=== PATIENT | female | born 1990 | race Caucasian/White ===

== ENCOUNTER 2017-03-05 10:55 | Emergency (ER) | payer OTHER | END 2017-03-05 11:40 | disposition home or self-care (01) | LOC: FTE 10:55 | DX: Z48.01 Encounter for change or removal of surgical wound dressing (principal); J45.909 Unspecified asthma, uncomplicated | CPT/HCPCS: 99281 ==

== ENCOUNTER 2017-03-15 17:04 | Emergency (ER) | payer OTHER | END 2017-03-15 18:47 | disposition home or self-care (01) | LOC: FTE 17:04 | DX: N61.1 Abscess of the breast and nipple (principal); J45.909 Unspecified asthma, uncomplicated | CPT/HCPCS: 99283; Z7502 ==